=== PATIENT | female | born 1970 | race Caucasian/White ===

== ENCOUNTER 2022-08-01 12:35 | Inpatient (IN) | payer OTHER ==
[~2022-08-01] VITALS: Ht 154.9 cm; Wt 51.7 kg
[2022-08-01 12:36] VITALS: BP_SYST 121
[2022-08-01] MEDS ORDERED: NS 1000 ML IV.SOLN IV ONE (13:00)
[2022-08-01] MEDS ORDERED: cefTRIAXone 1 GM IVPB PREMIX 50 ML IV ONE (13:00)
[2022-08-01 14:03] LABS: ALANINE AMINOTRANSFERASE 17 U/L (12-78); ALBUMIN 2.9 g/dL (3.4-4.8); ANION GAP 12 (5-15); ASPARTATE AMINOTRANSFERASE 31 U/L (10-37); CALCIUM 9.5 mg/dL (8.4-11.0); CHLORIDE 97 mmol/L (98-107); CREATININE 0.93 mg/dL (0.55-1.30); GFR AFRICAN AMERICAN 82 mL/min (>90); GLUCOSE 126 mg/dL (70-99); TOTAL BILIRUBIN 0.6 mg/dL (0.0-1.0); UREA NITROGEN, BLOOD 30 mg/dL (8-21)
[2022-08-01 14:11] LABS: MEAN CORPUSCULAR HEMOGLOBIN 30 pg (27-31); MEAN CORPUSCULAR HGB CONC 35 % (32-36); MEAN CORPUSCULAR VOLUME 86 fL (79.0-98.0); RED CELL DISTRIBUTION WIDTH 18.6 % (9.0-15.0); WHITE BLOOD COUNT (AUTO) 10.1 K/uL (4.8-10.8)
[2022-08-01 14:17] LABS: HEMOGLOBIN 3.3 g/dL (12.0-16.0); RED BLOOD CELL COUNT(AUTO) 1.12 MIL/uL (4.2-6.2)
[2022-08-01 14:18] LABS: HEMATOCRIT 9.7 % (36-48); PLATELET COUNT (AUTO) 6 K/uL (130-430)
[2022-08-01 14:46] LABS: BAND % (MANUAL) 4 % (0-6); LYMPHOCYTES % (MANUAL) 29 % (20-46)
[2022-08-01 14:48] LABS: MONOCYTES % (MANUAL) 15 % (0-11)
[2022-08-01 14:49] LABS: BASOPHILS % (MANUAL) 0 % (0-2); EOSINOPHILS % (MANUAL) 1 % (0-7)
[2022-08-01 14:52] LABS: INR 1.5 (0.8-1.2)
[2022-08-01 15:00] LABS: BILIRUBIN,URINE NEGATIVE (NEGATIVE); BLOOD, URINE NEGATIVE (NEGATIVE); CLARITY/URINE CLEAR (CLEAR); COLOR,URINE YELLOW (YELLOW); GLUCOSE,URINE NEGATIVE (NEGATIVE); KETONES,URINE NEGATIVE (NEGATIVE); LEUKOCYTE ESTERASE ,URINE NEGATIVE (NEGATIVE); NITRITE, URINE NEGATIVE (NEGATIVE); PROTEIN URINE NEGATIVE (NEGATIVE); UROBILINOGEN,URINE 0.2 (0.2-1.0)
[2022-08-01 15:03] LABS: FREE T4 (FREE THYROXINE) 1.4 ng/dl (0.8-1.5); LIPASE 38 U/L (73-393); THYROID STIMULATING HORMONE < 0.01 uIu/mL (0.36-3.74)
[2022-08-01] MEDS ORDERED: PIPERACILLIN/TAZO 3.375 GM in NS 50 ML IV ONE (16:15)
[2022-08-01] MEDS ORDERED: VANCOMYCIN HCL 1,000 MG in NS 250 ML IV ONE (16:15)
[2022-08-01] MEDS ORDERED: MUPIROCIN 2% TOPICAL OINTMENT 22 GM NS PRN (16:30)
[2022-08-01] MEDS ORDERED: NACL 0.9% 1,000 ML IV SCH (16:30)
[2022-08-01] MEDS ORDERED: MAGNESIUM SULFATE 50 ML IV PRN (16:30)
[2022-08-01] MEDS ORDERED: LORazepam 2 MG/ML VIAL IVP PRN (16:30)
[2022-08-01] MEDS ORDERED: ZOLPIDEM TARTRATE 5 MG TABLET PO PRN (16:30)
[2022-08-01] MEDS ORDERED: DOCUSATE SODIUM 100 MG CAPSULE PO PRN (16:30)
[2022-08-01] MEDS ORDERED: ONDANSETRON HCL 4 MG/2 ML VIAL IVP PRN (16:30)
[2022-08-01] MEDS ORDERED: IPRATROPIUM/ALBUTEROL SULFATE 3 ML AMPUL.NEB (DUONEB) INH PRN (16:30)
[2022-08-01] MEDS ORDERED: ACETAMINOPHEN 325 MG TABLET PO PRN (16:30)
[2022-08-01] MEDS ORDERED: PIPERACILLIN/TAZOBACTAM 3.375 GM/VIAL (ZOSYN) IV ONE (16:32)
[2022-08-01] MEDS ORDERED: VANCOMYCIN HCL 1000 MG/VIAL IV ONE (16:43)
[2022-08-01] MEDS ORDERED: LAMO200T9 PO (18:00)
[2022-08-01] MEDS ORDERED: BUPR300T55 PO (18:00)
[2022-08-01] MEDS ORDERED: CLON0.5T4 PO (18:00)
[2022-08-01] MEDS ORDERED: CLON0.2T PO (18:00)
[2022-08-01] MEDS ORDERED: THYR90TA15 PO (18:05)
[2022-08-01 19:32] LABS: TOTAL IRON BIND. CAPACITY 233 ug/dL (250-450)
[2022-08-02] VITALS (33 sets, daily range): BP systolic 74–187
[2022-08-02] MEDS ORDERED: PIPERACILLIN/TAZO 3.375 GM in NS 50 ML IV SCH ×2
[2022-08-02 01:32] LABS: BASOPHILS # (AUTO) 0.1 K/uL (0.0-0.2); BASOPHILS % (AUTO) 0.5 % (0.0-2.0); EOSINOPHILS # (AUTO) 0.1 K/uL (0.0-0.4); EOSINOPHILS % (AUTO) 0.7 % (0.0-4.0); HEMATOCRIT 26.2 % (36-48); HEMOGLOBIN 8.6 g/dL (12.0-16.0); LYMPHOCYTES # (AUTO) 4.4 K/uL (1.0-5.5); LYMPHOCYTES % (AUTO) 31.6 % (20.5-51.5); MEAN CORPUSCULAR HEMOGLOBIN 28 pg (27-31); MEAN CORPUSCULAR HGB CONC 33 % (32-36); MEAN CORPUSCULAR VOLUME 86 fL (79.0-98.0); MONOCYTES # (AUTO) 0.8 K/uL (0.0-1.0); MONOCYTES % (AUTO) 5.6 % (1.7-9.3); NEUTROPHILS # (AUTO) 8.6 K/uL (1.8-7.7); NEUTROPHILS % (AUTO) 61.6 % (40.0-70.0); RED BLOOD CELL COUNT(AUTO) 3.04 MIL/uL (4.2-6.2); RED CELL DISTRIBUTION WIDTH 18.9 % (9.0-15.0); WHITE BLOOD COUNT (AUTO) 13.9 K/uL (4.8-10.8)
[2022-08-02 01:42] LABS: PLATELET COUNT (AUTO) 5 K/uL (130-430)
[2022-08-02 01:46] LABS: CALCIUM 8.9 mg/dL (8.4-11.0); CREATININE 1.17 mg/dL (0.55-1.30)
[2022-08-02] MEDS ORDERED: FUROSEMIDE 40 MG/4 ML VIAL IVP ONE ×2 (02:45→04:15)
[2022-08-02] MEDS ORDERED: NALOXONE HCL 0.4 MG/ML AMP (NARCAN) IVP PRN (02:45)
[2022-08-02] MEDS ORDERED: MORPHINE 2 MG/ML INJ. SYRINGE IVP ONE (02:45)
[2022-08-02] MEDS ORDERED: FUROSEMIDE 40 MG/4 ML VIAL ONE ×2 (02:46→04:15)
[2022-08-02 05:19] LABS: EOSINOPHILS # (AUTO) 1.1 K/uL (0.0-0.4); EOSINOPHILS % (AUTO) 4.9 % (0.0-4.0); LYMPHOCYTES % (AUTO) 45.4 % (20.5-51.5); MEAN CORPUSCULAR HEMOGLOBIN 30 pg (27-31); MEAN CORPUSCULAR HGB CONC 32 % (32-36); MEAN CORPUSCULAR VOLUME 94 fL (79.0-98.0); MONOCYTES # (AUTO) 0.7 K/uL (0.0-1.0); MONOCYTES % (AUTO) 3.2 % (1.7-9.3); NEUTROPHILS # (AUTO) 10.3 K/uL (1.8-7.7); NEUTROPHILS % (AUTO) 46.5 % (40.0-70.0); RED BLOOD CELL COUNT(AUTO) 2.26 MIL/uL (4.2-6.2); WHITE BLOOD COUNT (AUTO) 22.1 K/uL (4.8-10.8)
[2022-08-02 05:21] LABS: CALCIUM 8.9 mg/dL (8.4-11.0); CREATININE 1.65 mg/dL (0.55-1.30)
[2022-08-02 05:32] LABS: HEMOGLOBIN 6.8 g/dL (12.0-16.0)
[2022-08-02 05:33] LABS: HEMATOCRIT 21.3 % (36-48); PLATELET COUNT (AUTO) 48 K/uL (130-430)
[2022-08-02] MEDS ORDERED: SODIUM BICARBONATE 8.4% JECT 50 MEQ/50 ML SYRINGE ONE ×2 (06:19→08:36)
[2022-08-02] MEDS ORDERED: SODIUM BICARBONATE 8.4% JECT 50 MEQ/50 ML SYRINGE IVP ONE ×2 (06:30→08:30)
[2022-08-02] MEDS ORDERED: ROCURONIUM BROMIDE 10 MG/ML (ZEMURON) ONE (07:00)
[2022-08-02] MEDS ORDERED: DEXTROSE 50% JECT 50 ML DISP.SYRIN ONE (08:28)
[2022-08-02] MEDS ORDERED: ROCURONIUM BROMIDE 10 MG/ML (ZEMURON) IV ONE (08:30)
[2022-08-02] MEDS ORDERED: MIDAZOLAM HCL 2 MG/2 ML VIAL (VERSED) IVP ONE (08:30)
[2022-08-02] MEDS ORDERED: DEXTROSE 50% JECT 50 ML DISP.SYRIN IVP ONE (08:30)
[2022-08-02] MEDS ORDERED: methylPREDNISolone SOD SUCC/PF 62.5 MG/ML VIAL ONE (08:36)
[2022-08-02] MEDS ORDERED: MIDAZOLAM HCL 2 MG/2 ML VIAL (VERSED) ONE (08:41)
[2022-08-02] MEDS ORDERED: methylPREDNISolone SOD SUCC/PF 62.5 MG/ML VIAL IVP ONE (09:00)
[2022-08-02] MEDS ORDERED: NOREPINEPHRINE BITARTRATE 8 MG in NS 242 ML IV PRN (09:00)
[2022-08-02] MEDS ORDERED: NOREPINEPHRINE 4 MG/4 ML VIAL IV ONE (09:06)
[2022-08-02 10:07] LABS: BASOPHILS # (AUTO) 0.1 K/uL (0.0-0.2); EOSINOPHILS # (AUTO) 0.2 K/uL (0.0-0.4); EOSINOPHILS % (AUTO) 1.1 % (0.0-4.0); LYMPHOCYTES # (AUTO) 6.2 K/uL (1.0-5.5); LYMPHOCYTES % (AUTO) 42.3 % (20.5-51.5); MEAN CORPUSCULAR HEMOGLOBIN 29 pg (27-31); MEAN CORPUSCULAR HGB CONC 32 % (32-36); MEAN CORPUSCULAR VOLUME 92 fL (79.0-98.0); MONOCYTES # (AUTO) 0.3 K/uL (0.0-1.0); MONOCYTES % (AUTO) 1.7 % (1.7-9.3); NEUTROPHILS # (AUTO) 7.8 K/uL (1.8-7.7); RED BLOOD CELL COUNT(AUTO) 2.32 MIL/uL (4.2-6.2); RED CELL DISTRIBUTION WIDTH 19.1 % (9.0-15.0); WHITE BLOOD COUNT (AUTO) 14.5 K/uL (4.8-10.8)
[2022-08-02 10:44] LABS: ALBUMIN 1.8 g/dL (3.4-4.8); CALCIUM 7.8 mg/dL (8.4-11.0); CREATININE 2.24 mg/dL (0.55-1.30)
[2022-08-02 10:50] LABS: HEMOGLOBIN 6.8 g/dL (12.0-16.0); PHOSPHORUS 10.9 mg/dL (2.7-4.5)
[2022-08-02 10:51] LABS: HEMATOCRIT 21.3 % (36-48); PLATELET COUNT (AUTO) 8 K/uL (130-430)
[2022-08-02 10:52] LABS: NEUTROPHILS % (AUTO) 53.9 % (40.0-70.0)
[2022-08-02 11:29] LABS: TOTAL BILIRUBIN 1.3 mg/dL (0.0-1.0)
[2022-08-02 12:13] LABS: PROTHROMBIN TIME > 90.0 SECS (9.5-12.5)
[2022-08-02 12:14] LABS: INR > 9.0 (0.8-1.2)
[2022-08-02] MEDS ORDERED: PHYTONADIONE 10 MG in NS 50 ML IV ONE (15:00)
[2022-08-02] MEDS: DEXAMETHASONE SOD PHOSPHATE 10 MG/ML VIAL IVP SCH ×3 (15:33→23:37)
[2022-08-02] MEDS: SODIUM BICARBONATE 8.4% VIAL 50 MEQ in 0.45% NACL 1,000 ML IV SCH (15:34)
[2022-08-02] MEDS ORDERED: NS 500 ML IV ONE (16:45)
[2022-08-02] MEDS ORDERED: MICAFUNGIN SODIUM 50 MG in NS 50 ML IV SCH (18:00)
[2022-08-02] MEDS: MIDAZOLAM IN NACL,ISO-OSMOT/PF 100 ML IV PRN (18:16)
[2022-08-02] MEDS: FENTANYL CITRATE-0.9 % NACL/PF 100 ML IV PRN (18:20)
[2022-08-02] MEDS: MEROPENEM 500 MG in NS 50 ML IV SCH (18:22)
[2022-08-03] VITALS (28 sets, daily range): BP systolic 111–136
[2022-08-03] MEDS: MEROPENEM 500 MG in NS 50 ML IV SCH ×3 (03:24→18:22)
[2022-08-03] MEDS: SODIUM BICARBONATE 8.4% VIAL 50 MEQ in 0.45% NACL 1,000 ML IV SCH ×2 (03:24→17:41)
[2022-08-03] MEDS ORDERED: FUROSEMIDE 20 MG/2 ML VIAL IVP ONE ×2 (03:30→07:00)
[2022-08-03] MEDS: DEXAMETHASONE SOD PHOSPHATE 10 MG/ML VIAL IVP SCH ×4 (06:14→23:40)
[2022-08-03] MEDS: FENTANYL CITRATE-0.9 % NACL/PF 100 ML IV PRN ×2 (06:24→17:43)
[2022-08-03 08:06] LABS: FOLATE (FOLIC ACID) 15.9 ng/mL (>3.0)
[2022-08-03 08:56] LABS: BASOPHILS % (AUTO) 0.7 % (0.0-2.0); HEMATOCRIT 36.3 % (36-48); HEMOGLOBIN 12.7 g/dL (12.0-16.0); LYMPHOCYTES # (AUTO) 1.3 K/uL (1.0-5.5); LYMPHOCYTES % (AUTO) 28.3 % (20.5-51.5); MEAN CORPUSCULAR HEMOGLOBIN 29 pg (27-31); MEAN CORPUSCULAR HGB CONC 35 % (32-36); MEAN CORPUSCULAR VOLUME 84 fL (79.0-98.0); MONOCYTES # (AUTO) 0.1 K/uL (0.0-1.0); MONOCYTES % (AUTO) 2.1 % (1.7-9.3); NEUTROPHILS # (AUTO) 3.1 K/uL (1.8-7.7); NEUTROPHILS % (AUTO) 67.9 % (40.0-70.0); RED BLOOD CELL COUNT(AUTO) 4.34 MIL/uL (4.2-6.2); RED CELL DISTRIBUTION WIDTH 16.4 % (9.0-15.0); WHITE BLOOD COUNT (AUTO) 4.5 K/uL (4.8-10.8)
[2022-08-03 08:58] LABS: PLATELET COUNT (AUTO) 45 K/uL (130-430)
[2022-08-03 09:14] LABS: INR 1.5 (0.8-1.2); PROTHROMBIN TIME 15.2 SECS (9.5-12.5)
[2022-08-03 09:20] LABS: ALBUMIN 2.6 g/dL (3.4-4.8); CALCIUM 7.7 mg/dL (8.4-11.0); CREATININE 1.71 mg/dL (0.55-1.30); TOTAL BILIRUBIN 1.7 mg/dL (0.0-1.0); VANCOMYCIN,RANDOM 2.1 ug/mL
[2022-08-03 10:07] LABS: FERRITIN 5051 ng/mL (15-150)
[2022-08-03] MEDS ORDERED: D5W 1,000 ML IV PRN (10:30)
[2022-08-03] MEDS ORDERED: DEXTROSE 50%-WATER 50 ML DISP.SYRIN IVP PRN (10:30)
[2022-08-03] MEDS ORDERED: GLUCOSE (DEXTROSE) ORAL GEL -Adults PO PRN (10:30)
[2022-08-03] MEDS: INSULIN REGULAR, HUMAN 100 UNITS/ML, 3 ML VIAL (humuLIN R) SUBCUT PRN ×4 (11:13→22:42)
[2022-08-03] MEDS: FLUCONAZOLE 200 mg/ NS 100 ML IV SCH (12:36)
[2022-08-03 16:11] LABS: HEMATOCRIT 32.9 % (36-48); HEMOGLOBIN 11.6 g/dL (12.0-16.0); MEAN CORPUSCULAR HEMOGLOBIN 29 pg (27-31); MEAN CORPUSCULAR HGB CONC 35 % (32-36); MEAN CORPUSCULAR VOLUME 83 fL (79.0-98.0); RED BLOOD CELL COUNT(AUTO) 3.95 MIL/uL (4.2-6.2); RED CELL DISTRIBUTION WIDTH 16.9 % (9.0-15.0); WHITE BLOOD COUNT (AUTO) 4.7 K/uL (4.8-10.8)
[2022-08-03 16:32] LABS: PLATELET COUNT (AUTO) 30 K/uL (130-430)
[2022-08-03 16:50] LABS: ALBUMIN 2.2 g/dL (3.4-4.8); CALCIUM 7.3 mg/dL (8.4-11.0); CREATININE 1.75 mg/dL (0.55-1.30); TOTAL BILIRUBIN 1.7 mg/dL (0.0-1.0)
[2022-08-03] MEDS: POTASSIUM CHLORIDE 20 MEQ TAB.PRT.SR PO PRN (17:09)
[2022-08-03] MEDS: INSULIN NPH 100 UNITS/ML 10 ML VIAL SUBCUT SCH (17:17)
[2022-08-03] MEDS ORDERED: POTASSIUM CHLORIDE 20 MEQ TAB.PRT.SR PO ONE (21:15)
[2022-08-03 21:56] LABS: BAND % (MANUAL) 35 % (0-6)
[2022-08-03 21:57] LABS: BASOPHILS % (MANUAL) 0 % (0-2); CORRECTED WHITE BLOOD COUNT 4.4 K/uL (4.5-11.0); EOSINOPHILS % (MANUAL) 0 % (0-7); LYMPHOCYTES % (MANUAL) 13 % (20-46); METAMYELOCYTES % 4 % (0-0); MONOCYTES % (MANUAL) 5 % (0-11)
[2022-08-04] VITALS (30 sets, daily range): BP systolic 94–125
[2022-08-04] MEDS: FENTANYL CITRATE-0.9 % NACL/PF 100 ML IV PRN ×2 (01:55→16:38)
[2022-08-04] MEDS: MIDAZOLAM IN NACL,ISO-OSMOT/PF 100 ML IV PRN (01:57)
[2022-08-04] MEDS: MEROPENEM 500 MG in NS 50 ML IV SCH ×3 (03:00→18:10)
[2022-08-04] MEDS: SODIUM BICARBONATE 8.4% VIAL 50 MEQ in 0.45% NACL 1,000 ML IV SCH ×2 (03:06→22:08)
[2022-08-04] MEDS: INSULIN REGULAR, HUMAN 100 UNITS/ML, 3 ML VIAL (humuLIN R) SUBCUT PRN ×6 (03:10→22:21)
[2022-08-04 05:18] LABS: BASOPHILS % (AUTO) 0.4 % (0.0-2.0); EOSINOPHILS # (AUTO) 0.1 K/uL (0.0-0.4); EOSINOPHILS % (AUTO) 1.1 % (0.0-4.0); HEMATOCRIT 32.4 % (36-48); HEMOGLOBIN 11.3 g/dL (12.0-16.0); LYMPHOCYTES # (AUTO) 1.6 K/uL (1.0-5.5); LYMPHOCYTES % (AUTO) 25.4 % (20.5-51.5); MEAN CORPUSCULAR HEMOGLOBIN 29 pg (27-31); MEAN CORPUSCULAR HGB CONC 35 % (32-36); MEAN CORPUSCULAR VOLUME 84 fL (79.0-98.0); MONOCYTES # (AUTO) 0.1 K/uL (0.0-1.0); MONOCYTES % (AUTO) 1.7 % (1.7-9.3); NEUTROPHILS # (AUTO) 4.4 K/uL (1.8-7.7); NEUTROPHILS % (AUTO) 71.4 % (40.0-70.0); RED BLOOD CELL COUNT(AUTO) 3.88 MIL/uL (4.2-6.2); RED CELL DISTRIBUTION WIDTH 16.5 % (9.0-15.0); WHITE BLOOD COUNT (AUTO) 6.2 K/uL (4.8-10.8)
[2022-08-04 05:45] LABS: PLATELET COUNT (AUTO) 16 K/uL (130-430)
[2022-08-04 05:50] LABS: ALANINE AMINOTRANSFERASE 662 U/L (12-78); ALBUMIN 2.1 g/dL (3.4-4.8); ANION GAP 13 (5-15); ASPARTATE AMINOTRANSFERASE 1609 U/L (10-37); BILIRUBIN,DIRECT 0.8 mg/dL (0.0-0.3); CALCIUM 7.1 mg/dL (8.4-11.0); CHLORIDE 106 mmol/L (98-107); CREATININE 1.54 mg/dL (0.55-1.30); GFR AFRICAN AMERICAN 46 mL/min (>90); GLUCOSE 204 mg/dL (70-99); THYROID STIMULATING HORMONE < 0.01 uIu/mL (0.34-4.82); UREA NITROGEN, BLOOD 65 mg/dL (8-21)
[2022-08-04 05:59] LABS: INR 1.5 (0.8-1.2)
[2022-08-04] MEDS: DEXAMETHASONE SOD PHOSPHATE 10 MG/ML VIAL IVP SCH ×4 (06:17→22:50)
[2022-08-04] MEDS: INSULIN NPH 100 UNITS/ML 10 ML VIAL SUBCUT SCH ×2 (06:25→16:39)
[2022-08-04] MEDS ORDERED: POTASSIUM CHLORIDE 20 MEQ TAB.PRT.SR PO ONE (10:00)
[2022-08-04] MEDS: FLUCONAZOLE 200 mg/ NS 100 ML IV SCH (11:57)
[2022-08-04] MEDS: POTASSIUM CHLORIDE 20 MEQ TAB.PRT.SR PO PRN (15:54)
[2022-08-05] VITALS (27 sets, daily range): BP systolic 96–142
[2022-08-05] MEDS: MEROPENEM 500 MG in NS 50 ML IV SCH ×3 (02:06→18:18)
[2022-08-05] MEDS: DEXAMETHASONE SOD PHOSPHATE 10 MG/ML VIAL IVP SCH ×3 (05:03→17:54)
[2022-08-05 05:22] LABS: BASOPHILS % (AUTO) 0.2 % (0.0-2.0); EOSINOPHILS # (AUTO) 0.1 K/uL (0.0-0.4); EOSINOPHILS % (AUTO) 0.9 % (0.0-4.0); HEMOGLOBIN 9.8 g/dL (12.0-16.0); LYMPHOCYTES # (AUTO) 1.7 K/uL (1.0-5.5); LYMPHOCYTES % (AUTO) 19.8 % (20.5-51.5); MEAN CORPUSCULAR HEMOGLOBIN 29 pg (27-31); MEAN CORPUSCULAR HGB CONC 34 % (32-36); MEAN CORPUSCULAR VOLUME 87 fL (79.0-98.0); MONOCYTES # (AUTO) 0.2 K/uL (0.0-1.0); MONOCYTES % (AUTO) 2.2 % (1.7-9.3); NEUTROPHILS # (AUTO) 6.7 K/uL (1.8-7.7); NEUTROPHILS % (AUTO) 76.9 % (40.0-70.0); RED BLOOD CELL COUNT(AUTO) 3.34 MIL/uL (4.2-6.2); RED CELL DISTRIBUTION WIDTH 17.7 % (9.0-15.0); WHITE BLOOD COUNT (AUTO) 8.7 K/uL (4.8-10.8)
[2022-08-05] MEDS: INSULIN NPH 100 UNITS/ML 10 ML VIAL SUBCUT SCH ×2 (05:31→18:02)
[2022-08-05] MEDS: INSULIN REGULAR, HUMAN 100 UNITS/ML, 3 ML VIAL (humuLIN R) SUBCUT PRN ×3 (05:31→18:01)
[2022-08-05 05:38] LABS: CREATININE 1.56 mg/dL (0.55-1.30)
[2022-08-05 05:46] LABS: CALCIUM 6.9 mg/dL (8.4-11.0)
[2022-08-05 06:05] LABS: INR 1.4 (0.8-1.2); PROTHROMBIN TIME 13.8 SECS (9.5-12.5)
[2022-08-05 06:34] LABS: FIBRINOGEN < 90 mg/dL (200-400)
[2022-08-05 06:43] LABS: PLATELET COUNT (AUTO) 22 K/uL (130-430)
[2022-08-05 10:06] LABS: HEPATITIS A AB, IgM Negative (Negative); HEPATITIS B SURFACE AG Negative (Negative); HEPATITIS C VIRUS AB Non Reactive (Non Reactive)
[2022-08-05] MEDS: FLUCONAZOLE 200 mg/ NS 100 ML IV SCH (13:41)
[2022-08-06] VITALS (24 sets, daily range): BP systolic 83–185
[2022-08-06] MEDS: DEXAMETHASONE SOD PHOSPHATE 10 MG/ML VIAL IVP SCH ×2 (00:24→06:43)
[2022-08-06] MEDS: INSULIN REGULAR, HUMAN 100 UNITS/ML, 3 ML VIAL (humuLIN R) SUBCUT PRN ×2 (00:25→06:49)
[2022-08-06] MEDS: MEROPENEM 500 MG in NS 50 ML IV SCH (03:02)
[2022-08-06 05:46] LABS: CALCIUM 7.3 mg/dL (8.4-11.0)
[2022-08-06 05:47] LABS: CREATININE 1.32 mg/dL (0.55-1.30)
[2022-08-06 05:51] LABS: BASOPHILS % (AUTO) 0.4 % (0.0-2.0); EOSINOPHILS % (AUTO) 0.4 % (0.0-4.0); HEMATOCRIT 27.8 % (36-48); HEMOGLOBIN 9.2 g/dL (12.0-16.0); LYMPHOCYTES # (AUTO) 1.3 K/uL (1.0-5.5); LYMPHOCYTES % (AUTO) 15.4 % (20.5-51.5); MEAN CORPUSCULAR HEMOGLOBIN 29 pg (27-31); MEAN CORPUSCULAR HGB CONC 33 % (32-36); MEAN CORPUSCULAR VOLUME 87 fL (79.0-98.0); MONOCYTES # (AUTO) 0.2 K/uL (0.0-1.0); NEUTROPHILS # (AUTO) 7.1 K/uL (1.8-7.7); NEUTROPHILS % (AUTO) 81.8 % (40.0-70.0); RED BLOOD CELL COUNT(AUTO) 3.19 MIL/uL (4.2-6.2); RED CELL DISTRIBUTION WIDTH 17.6 % (9.0-15.0); WHITE BLOOD COUNT (AUTO) 8.6 K/uL (4.8-10.8)
[2022-08-06 06:19] LABS: PLATELET COUNT (AUTO) 13 K/uL (130-430)
[2022-08-06 06:35] LABS: INR 1.1 (0.8-1.2); PROTHROMBIN TIME 11.2 SECS (9.5-12.5)
[2022-08-06] MEDS: INSULIN NPH 100 UNITS/ML 10 ML VIAL SUBCUT SCH (06:44)
[2022-08-06 09:52] LABS: CALCIUM 7.2 mg/dL (8.4-11.0); CREATININE 1.28 mg/dL (0.55-1.30)
[2022-08-06 09:56] LABS: ALBUMIN 2.2 g/dL (3.4-4.8); TOTAL BILIRUBIN 1.6 mg/dL (0.0-1.0)
[2022-08-06] MEDS ORDERED: MORPHINE SULFATE IN 0.9 % NACL 100 ML IV PRN (12:15)
== END 2022-08-06 20:30 | DRG 870 ==
LOC: SED 12:35 → SIC 16:07
PROVIDERS: ADMIT General Practice; ATTEND General Practice
PROC: 30233N1 Transfusion of Nonautologous Red Blood Cells into Peripheral Vein, Percutaneous Approach (ICD-10-PCS; 2022-08-01)
PROC: 5A1955Z Respiratory Ventilation, Greater than 96 Consecutive Hours (ICD-10-PCS; 2022-08-02)
PROC: 06HY33Z Insertion of Infusion Device into Lower Vein, Percutaneous Approach (ICD-10-PCS; 2022-08-02)
PROC: B54CZZA Ultrasonography of Left Lower Extremity Veins, Guidance (ICD-10-PCS; 2022-08-02)
PROC: 30233K1 Transfusion of Nonautologous Frozen Plasma into Peripheral Vein, Percutaneous Approach (ICD-10-PCS; 2022-08-02)
PROC: 30233R1 Transfusion of Nonautologous Platelets into Peripheral Vein, Percutaneous Approach (ICD-10-PCS; 2022-08-02)
PROC: 0BH17EZ Insertion of Endotracheal Airway into Trachea, Via Natural or Artificial Opening (ICD-10-PCS; 2022-08-02)
PROC: 4A10X4Z Monitoring of Central Nervous Electrical Activity, External Approach (ICD-10-PCS; principal; 2022-08-06)
PROC: 02HV33Z Insertion of Infusion Device into Superior Vena Cava, Percutaneous Approach (ICD-10-PCS; 2022-08-06)
PROC: B548ZZA Ultrasonography of Superior Vena Cava, Guidance (ICD-10-PCS; 2022-08-06)
DX: A41.9 Sepsis, unspecified organism (principal); I21.A1 Myocardial infarction type 2; J96.01 Acute respiratory failure with hypoxia; R65.21 Severe sepsis with septic shock; J69.0 Pneumonitis due to inhalation of food and vomit; E44.0 Moderate protein-calorie malnutrition; E87.29 Other acidosis; D61.818 Other pancytopenia; I25.5 Ischemic cardiomyopathy; F32.A Depression, unspecified; F41.9 Anxiety disorder, unspecified; E03.9 Hypothyroidism, unspecified; C50.919 Malignant neoplasm of unspecified site of unspecified female breast; I46.9 Cardiac arrest, cause unspecified; D69.59 Other secondary thrombocytopenia; R57.1 Hypovolemic shock; Z90.13 Acquired absence of bilateral breasts and nipples; Z85.3 Personal history of malignant neoplasm of breast; Z88.5 Allergy status to narcotic agent; Z79.899 Other long term (current) drug therapy; Z92.21 Personal history of antineoplastic chemotherapy; Z92.3 Personal history of irradiation; Z68.21 Body mass index [BMI] 21.0-21.9, adult
CPT/HCPCS: 36415; 36600; 70450-TC; 71045; 76376; 76700-TC; 80048; 80053; 80076; 80202; 81003; 82248; 82550; 82607; 82728; 82746; 82803; 82962; 83037; 83540; 83550; 83605; 83690; 83735; 83880; 84100; 84439; 84443; 84484; 85007; 85025; 85027; 85379; 85384; 85610-TC; 85730-TC; 86480; 86709; 86803; 86886; 86900; 86901; 86920; 87040; 87070-TC; 87086; 87205-TC; 87305; 87340; 87497; 93005; 93306; 94002; 94003; 94640; 94760; 95816; 96365; 96367; 99291; 99292; C1751; J0696; J1100; J1450; J1815; J1940; J2060; J2185; J2270; J2405; J2543; J2930; J3010; J3370; J3430; J3465; J7030; J7040; J7050; P9012; P9021; P9034; P9059